=== PATIENT | male | born 1955 ===

== ENCOUNTER 2022-10-23 08:24 | Inpatient (IN) | payer BC ==
[2022-10-23] MEDS ORDERED: Sodium Chloride 0.9% 10 ML Syringe FLUSH PRN ×2 (08:38→10:27)
[2022-10-23] MEDS ORDERED: Sodium Chloride 0.9% 1,000 ML IV ONE ×3 (08:51→11:47)
[2022-10-23] MEDS ORDERED: Acetaminophen 500 MG Tab PO ONE (08:51)
[2022-10-23] MEDS ORDERED: Piperacillin/Tazobactam 4.5 GM in Sodium Chloride 0.9% 100 ML IV ONE (09:12)
[2022-10-23] MEDS ORDERED: Ciprofloxacin 0.3% Ophth Soln 5 ML Bottle EARLF ONE (09:29)
[2022-10-23 09:56] LABS: CORONAVIRUS COVID-19 NAA NEGATIVE (NEGATIVE); RESPIRATORY SYNCYTIAL VIR NAA NEGATIVE (NEGATIVE)
[2022-10-23] MEDS ORDERED: diphenhydrAMINE 25 MG Tab PO ONE ×2 (10:00→14:00)
[2022-10-23] MEDS ORDERED: Acetaminophen 325 MG Tab PO ONE (10:00)
[2022-10-23] MEDS ORDERED: Iopamidol 612 MG/ML 100 ML Bottle IVPUSH ONE (10:24)
[2022-10-23] MEDS ORDERED: Acetaminophen 325 MG Tab PO PRN (12:44)
[2022-10-23] MEDS ORDERED: Polyethylene Glycol 3350 Powder 17 GM Packet PO PRN (12:44)
[2022-10-23] MEDS ORDERED: Ondansetron 4 MG/2 ML SDV IVPUSH PRN (12:44)
[2022-10-23] MEDS ORDERED: HYDROmorphone 0.5 MG/0.5 ML Syringe IVPUSH PRN (12:44)
[2022-10-23] MEDS ORDERED: Magnesium Hydroxide 400 MG/5 ML Susp 30 ML Cup PO PRN (12:44)
[2022-10-23] MEDS ORDERED: Albuterol/Ipratropium 3.0-0.5 MG/3 ML Neb Soln NEB PRN (12:44)
[2022-10-23] MEDS: Meropenem 1 GM SDV IVPUSH SCH ×2 (15:22→22:17)
[2022-10-23] MEDS: Acetaminophen/HYDROcodone 325-5 MG Tab PO PRN ×2 (15:34→20:24)
[2022-10-23] MEDS: Acyclovir 500 MG in Sodium Chloride 0.9% 100 ML IV SCH (15:53)
[2022-10-23] MEDS ORDERED: Dexamethasone 4 MG/ML SDV IVPUSH ONE (16:00)
[2022-10-23] MEDS: Micafungin 100 MG in Sodium Chloride 0.9% 100 ML IV SCH (17:09)
[2022-10-23] MEDS ORDERED: Allopurinol 100 MG Tab PO SCH (18:00)
[2022-10-24] MEDS: Acyclovir 500 MG in Sodium Chloride 0.9% 100 ML IV SCH ×2 (04:13→15:33)
[2022-10-24] MEDS: Meropenem 1 GM SDV IVPUSH SCH ×3 (05:42→21:58)
[2022-10-24 05:57] LABS: ANION GAP 10.9 mEq/L (7-13)
[2022-10-24] MEDS: Saccharomyces Boulardii (Probiotic) 250 MG Cap PO SCH ×2 (09:06→20:17)
[2022-10-24] MEDS: Allopurinol 300 MG Tab PO SCH ×2 (09:06→20:17)
[2022-10-24] MEDS: Micafungin 100 MG in Sodium Chloride 0.9% 100 ML IV SCH (09:08)
[2022-10-24] MEDS: Ciprofloxacin 0.3% Ophth Soln 5 ML Bottle EARLF SCH ×2 (09:23→20:17)
[2022-10-24] MEDS: Timolol Maleate 0.5% Ophth Soln 5 ML Bottle EYELF SCH ×2 (10:35→20:17)
[2022-10-24] MEDS: Acyclovir 200 MG Cap PO SCH (20:17)
[2022-10-24] MEDS: Acetaminophen/HYDROcodone 325-5 MG Tab PO PRN (22:01)
[2022-10-25] MEDS: Meropenem 1 GM SDV IVPUSH SCH ×3 (06:24→21:36)
[2022-10-25 06:48] LABS: ANION GAP 9.7 mEq/L (7-13)
[2022-10-25] MEDS: Timolol Maleate 0.5% Ophth Soln 5 ML Bottle EYELF SCH ×2 (08:40→21:44)
[2022-10-25] MEDS: Ciprofloxacin 0.3% Ophth Soln 5 ML Bottle EARLF SCH ×2 (08:40→21:45)
[2022-10-25] MEDS: Acyclovir 200 MG Cap PO SCH ×2 (08:41→21:42)
[2022-10-25] MEDS: Allopurinol 300 MG Tab PO SCH ×2 (08:41→21:41)
[2022-10-25] MEDS: Saccharomyces Boulardii (Probiotic) 250 MG Cap PO SCH ×2 (08:41→21:41)
[2022-10-25] MEDS: Micafungin 100 MG in Sodium Chloride 0.9% 100 ML IV SCH (08:41)
[2022-10-25] MEDS ORDERED: Bisacodyl 10 MG Supp RECTAL ONE (21:00)
[2022-10-25] MEDS: Acetaminophen/HYDROcodone 325-5 MG Tab PO PRN (21:49)
[2022-10-26] MEDS: Meropenem 1 GM SDV IVPUSH SCH ×2 (05:48→13:51)
[2022-10-26 07:04] LABS: ANION GAP 9.8 mEq/L (7-13)
[2022-10-26] MEDS: Saccharomyces Boulardii (Probiotic) 250 MG Cap PO SCH (09:03)
[2022-10-26] MEDS: Allopurinol 300 MG Tab PO SCH (09:03)
[2022-10-26] MEDS: Acyclovir 200 MG Cap PO SCH (09:03)
[2022-10-26] MEDS: Ciprofloxacin 0.3% Ophth Soln 5 ML Bottle EARLF SCH (09:04)
[2022-10-26] MEDS: Timolol Maleate 0.5% Ophth Soln 5 ML Bottle EYELF SCH (09:05)
[2022-10-26] MEDS: Micafungin 100 MG in Sodium Chloride 0.9% 100 ML IV SCH (09:06)
== END 2022-10-26 15:25 | disposition home or self-care (01) | DRG 720 ==
LOC: DL.ED 08:24 → DL.IVTHER 08:24 → MERGE 08:24 → EDSTATUS 08:36 → DL.MS 11:40 → DL.ED 12:08
PROVIDERS: ADMIT Internal Medicine; ATTEND Internal Medicine
PROC: 6A550Z2 Pheresis of Platelets, Single (ICD-10-PCS; principal; 2022-10-23)
PROC: 3E03329 Introduction of Other Anti-infective into Peripheral Vein, Percutaneous Approach (ICD-10-PCS; 2022-10-23)
DX: A41.9 Sepsis, unspecified organism (principal); I10 Essential (primary) hypertension; J45.909 Unspecified asthma, uncomplicated; M06.9 Rheumatoid arthritis, unspecified; H40.9 Unspecified glaucoma; K59.00 Constipation, unspecified; R73.01 Impaired fasting glucose; E83.52 Hypercalcemia; C83.30 Diffuse large B-cell lymphoma, unspecified site; Z20.822 Contact with and (suspected) exposure to COVID-19; G89.29 Other chronic pain; M54.50 Low back pain, unspecified; D61.818 Other pancytopenia; E87.1 Hypo-osmolality and hyponatremia; R50.81 Fever presenting with conditions classified elsewhere; D84.9 Immunodeficiency, unspecified; H60.502 Unspecified acute noninfective otitis externa, left ear; B95.61 Methicillin susceptible Staphylococcus aureus infection as the cause of diseases classified elsewhere; B96.20 Unspecified Escherichia coli [E. coli] as the cause of diseases classified elsewhere; Z87.891 Personal history of nicotine dependence; Z98.890 Other specified postprocedural states
CPT/HCPCS: 0241U; 36415; 36430; 70470; 71045; 80053; 80202; 81001; 83605; 83615; 83735; 84145; 84550; 85025; 85027; 85610; 86140; 86900; 86901; 87040; 87070; 87077; 87186; 87205; 96365; 96366; 96367; 99285; 99285-25; A9270-GY; J0133; J1100; J1170; J2185; J2248; J2543; J3370; J3490; J7030; J7050; P9034; Q9967

== ENCOUNTER 2025-06-20 09:42 | Day surgery (SDC) | payer BC ==
[2025-06-20] MEDS ORDERED: Dexamethasone 4 MG/ML SDV IV ONE (09:43)
[2025-06-20] MEDS ORDERED: Sodium Chloride 0.9% 10 ML Syringe IV ONE (09:43)
[2025-06-20] MEDS ORDERED: Midazolam 1 MG/ML 2 ML SDV IV ONE (09:43)
[2025-06-20] MEDS ORDERED: Ondansetron 4 MG/2 ML SDV IVPUSH PRN (10:00)
[2025-06-20] MEDS: Povidone-Iodine 5% Sterile Ophth Soln 30 ML Bottle EYERT ONE ×2 (10:21→11:34)
[2025-06-20] MEDS: Moxifloxacin 0.5% Ophth Soln 3 ML Bottle EYERT ONE (10:21)
[2025-06-20] MEDS: Phenylephrine 10% Ophth Soln 5 ML Bot EYERT ONE (10:23)
[2025-06-20] MEDS: Timolol Maleate 0.5% Ophth Soln 5 ML Bottle EYERT ONE (10:23)
[2025-06-20] MEDS: Cataract Ophth Solution EYERT ONE (10:24)
[2025-06-20] MEDS: Apraclonidine 0.5% Ophth Soln 5 ML Bot EYERT ONE (11:34)
[2025-06-20] MEDS: Diclofenac Sodium 0.1% Ophth Soln 5 ML Bottle EYERT ONE (11:34)
[2025-06-20] MEDS: Dexamethasone/Neomycin/Polymyxin B Ophth Oint 3.5 GM Tube EYERT ONE (11:35)
== END 2025-06-20 12:38 | disposition home or self-care (01) ==
LOC: DL.SDS 09:42
PROVIDERS: ATTEND Ophthalmology
DX: H25.811 Combined forms of age-related cataract, right eye (principal); I10 Essential (primary) hypertension; Z87.891 Personal history of nicotine dependence; Z79.899 Other long term (current) drug therapy
CPT/HCPCS: A9270-GY; J1100; J2003; J2250; J3373; J3490; V2632